=== PATIENT | male | born 1950 | race Caucasian/White ===

== ENCOUNTER 2017-05-02 21:12 | Emergency (ER) | payer BC ==
[~2017-05-02] VITALS: Ht 190.5 cm; Wt 120.2 kg
[~2017-05-02 21:12] MED LIST: BACITRACIN ZIN1 EACH TOPIC; KEFLEX500 MG ORAL
[2017-05-02] MEDS ORDERED: XARELTO10 MG ORAL (21:27)
[2017-05-02] MEDS ORDERED: AVAPRO300 MG ORAL (21:27)
[2017-05-02 21:30] VITALS: BP 151/85
[2017-05-02 21:40] VITALS: BP 159/80
[2017-05-02 22:20] VITALS: BP 151/85
--- NOTE | 2017-05-02 23:26 | Emergency Room Report ---
History of Present Illness General Chief Complaint: Foreign Body Source: Patient Present Illness HPI 66YOM [employer] patient with concern for retained earbud in right ear that he uses when swimming. Rubber piece likely came off. Denies pain or loss of hearing or tinnitus to either ear. Denies fever/chills Allergies: Coded Allergies: No Known Allergies (Unverified , 12/01/15) Patient History Past Medical History: none Past Surgical History: none Pertinent Family History: none Social History: Denies: smoking, alcohol use, drug use Immunizations: UTD Reviewed Nursing Documentation: PMH: Agreed, PSxH: Agreed Nursing Documentation-PMH Past Medical History: No History, Except For Hx Hypertension: Yes Review of Systems All Other Systems: negative except mentioned in HPI Physical Exam Vital Signs Date Time Temp Pulse Resp B/P (MAP) Pulse Ox O2 Delivery O2 Flow Rate FiO2 05/02/17 21:20 97.9 89 16 151/85 99 Room Air Sp02 EP Interpretation: reviewed, normal General Appearance: normal inspection, well appearing, no apparent distress, alert, GCS 15, non-toxic Head: normocephalic, atraumatic ENT: normal ENT inspection, hearing grossly normal, normal pharynx, no angioedema, normal voice, TMs + canals normal, uvula midline, other - Bilateral retained FBs in ears. Right ear rubber earbud relatively in outter canal. Left ear rubber earbud a little deeper. 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, motor strength/tone normal, speech normal Psychiatric: normal inspection, judgement/insight normal, mood/affect normal Skin: normal inspection, normal color, no rash Procedures Additional Procedure Procedure Narrative Foreign body removal Patient positioned on either side for bilateral FB removal from both ears Tolerated well No complication Medical Decision Making Diagnostic Impression: Primary Impression: Foreign body of both ears Qualified Codes: T16.1XXA - Foreign body in right ear, initial encounter; T16.2XXA - Foreign body in left ear, initial encounter ER Course Earbud removed from both ears No otitis media or externa VSS. Afebrile DC home Last Vital Signs Date Time Temp Pulse Resp B/P (MAP) Pulse Ox O2 Delivery O2 Flow Rate FiO2 05/02/17 22:20 97.9 89 16 151/85 99 Room Air Status: improved Disposition: HOME, SELF-CARE Condition: Improved Referrals: NON PHYSICIAN (PCP) Patient Instructions: Ear Foreign Body CHAO GANT M.D. May 02, 2017 23:26
== END 2017-05-02 22:20 | disposition home or self-care (01) ==
LOC: EMR 22:00
DX: T16.1XXA Foreign body in right ear, initial encounter (principal); T16.2XXA Foreign body in left ear, initial encounter; I10 Essential (primary) hypertension; X58.XXXA Exposure to other specified factors, initial encounter; Y93.9 Activity, unspecified; Y92.9 Unspecified place or not applicable
CPT/HCPCS: 99283

== ENCOUNTER 2017-07-16 19:24 | Emergency (ER) | payer BC ==
[~2017-07-16] VITALS: Ht 190.5 cm; Wt 121.6 kg
[~2017-07-16 19:24] MED LIST changes: +AVAPRO300 MG ORAL; +XARELTO10 MG ORAL
[2017-07-16] MEDS ORDERED: IBUPROFEN600 MG ORAL (20:38)
[2017-07-16 20:45] VITALS: BP 148/84
--- NOTE | 2017-07-16 20:45 | Emergency Room Report ---
History of Present Illness General Chief Complaint: Pain Source: Patient (REILLY MENDEZ) Present Illness HPI The patient is a 67-year-old male presenting for right elbow pain. He states that he hit the elbow on a hard surface one week prior and has now developed swelling to the area. Pain is a 3/10 dull ache and does not radiate. Worse with movement. He denies previous injury to the elbow. He is not taking any medication. He denies history of gout. He denies other symptoms including fever, chills, rash, numbness or tingling (REILLY MENDEZ P.A.) Allergies: Coded Allergies: No Known Allergies (Unverified , 12/01/15) Patient History Past Medical History: see triage record Pertinent Family History: none Reviewed Nursing Documentation: PMH: Agreed, PSxH: Agreed (REILLY MENDEZ.Shine) Nursing Documentation-PMH Hx Hypertension: Yes (REILLY MENDEZ.AAnton) Review of Systems All Other Systems: negative except mentioned in HPI (REILLY MENDEZ P.AAnton) Physical Exam Vital Signs Date Time Temp Pulse Resp B/P (MAP) Pulse Ox O2 Delivery O2 Flow Rate FiO2 07/16/17 19:26 97.3 94 16 148/84 96 Room Air Sp02 EP Interpretation: reviewed, normal General Appearance: no apparent distress, alert, GCS 15, non-toxic Head: normocephalic, atraumatic Eyes: bilateral eye normal inspection, bilateral eye PERRL Musculoskeletal: back normal, gait/station normal, normal range of motion, swelling - R olecranon, tender - R olecranon Neurologic: alert, oriented x3, responsive, motor strength/tone normal, sensory intact, speech normal Psychiatric: judgement/insight normal, memory normal, mood/affect normal, no suicidal/homicidal ideation Skin: normal color, no rash, warm/dry, well hydrated (REILLY MENDEZ P.A.) Procedures Splinting Splinting : Consent: Verbal Location: R elbow Pre-Made Type: JOSR wrap Pre-Proc Neuro Vasc Exam: normal Post-Proc Neuro Vasc Exam: normal Patient Tolerated: Well Complications: None (REILLY MENDEZ P.A.) Medical Decision Making PA Attestation Dr. Young is my supervising physician. Patient management was discussed with my supervising physician (REILLY MENDEZ) Medicare Attestation I, Harsh Young MD hereby attest that the medical record entry accurately reflects signatures/notations that I made in my capacity as MD when I treated/ diagnosed the above listed Medicare beneficiary. I attest that this information is true, accurate and complete to the best of my knowledge. I understand that any falsification, omission, or concealment of material fact may subject me to administrative, civil, or criminal liability. This patient warrants hospital admission for extreme of age and has a condition that cannot be treated as outpatient. (Harsh Young M.D.) Diagnostic Impression: Primary Impression: Olecranon bursitis, right elbow ER Course The patient is a 67-year-old male presenting for right elbow pain Ddx considered include but not limited to bursitis, septic arthritis, sprain/ strain, fracture, contusion PE: Afebrile. NAD Right elbow: There is localized edema to the olecranon with tenderness to palpation. No skin changes. No erythema. Full active range of motion is intact. X-ray of the right elbow shows no injury to bone. There is soft tissue swelling Right elbow Josr wrap is placed and the patient will be discharged home with prescription for Motrin. He is given rice instructions. ER precautions are given (REILLY MENDEZ.Shine) ER Course I have reviewed the PA's interpretation of Xray results and agree with findings. (Harsh Young M.D.) Other X-Ray Diagnostic Results Other X-Ray Diagnostic Results : X-Ray ordered: R elbow # of Views/Limited Vs Complete: 3 View Indication: Pain EP Interpretation: Yes PA Xray: Interpretation reviewed, by supervising MD, and agrees with findings. Interpretation: no dislocation, no fractures, other - + STS Impression: Other - Soft tissue swelling Electronically Signed by: Reilly Mendez PA-C (REILLY MENDEZ) Last Vital Signs Date Time Temp Pulse Resp B/P (MAP) Pulse Ox O2 Delivery O2 Flow Rate FiO2 07/16/17 19:26 97.3 94 16 148/84 96 Room Air Status: improved (REILLY MENDEZ.Shine) Disposition: HOME, SELF-CARE Condition: Improved Scripts Celecoxib* (CELEBREX*) 200 Mg Capsule 200 MG ORAL Q12HR, #30 CAP Prov: REILLY MENDEZ 07/16/17 Patient Instructions: Elbow Bursitis, RICE for Routine Care of Injuries Additional Instructions: I discussed my findings with the patient. All questions and concerns have been answered. Treatment and medication compliance have been addressed. I advised the patient that they need to follow up with PMD in 3-5 days. Return to ED if pain remains or worsens, numbness or tingling occurs, new rash is noticed, fever is noticed, or if needed for any reason. Patient verbalized understanding of discharge instructions. REILLY MENDEZ Jul 16, 2017 20:45 Harsh Young M.D. Jul 29, 2017 00:59
[2017-07-16] MEDS ORDERED: CELEBREX200 MG ORAL (20:51)
[2017-07-16 20:55] VITALS: BP 148/84
--- NOTE | 2017-07-17 11:20 | Diagnostic Imaging Report ---
Indication: PAIN Technique: 3 views of the right ankle Comparison: none Findings: Superficial soft tissue swelling overlies the olecranon. No acute fractures. No dislocations. No effusion. The joint spaces are preserved Impression: Soft tissue swelling. No acute bony trauma
== END 2017-07-16 20:55 | disposition home or self-care (01) ==
LOC: EMR 20:30
DX: M70.21 Olecranon bursitis, right elbow (principal); I10 Essential (primary) hypertension
CPT/HCPCS: 73080; 99283; J2704